=== PATIENT | female | born 1980 | race Caucasian/White ===

== ENCOUNTER 2019-02-16 05:21 | Day surgery (SDC) | payer OTHER ==
[~2019-02-16] VITALS: Ht 149.9 cm; Wt 60.0 kg
[2019-02-16] VITALS (10 sets, daily range): BP systolic 103–133; BP diastolic 59–75; PULSE 86–122; RESP 12–21; Ht 149.9 cm; Wt 60.0 kg
[~2019-02-16 05:21] MED LIST: LEVO175T38 PO
[2019-02-16] MEDS ORDERED: LACTATED RINGER'S 1,000 ML IV ONE (06:00)
[2019-02-16] MEDS ORDERED: ACETAMINOPHEN 500 MG TAB PO ONE (06:30)
[2019-02-16] MEDS ORDERED: ROPIVACAINE 0.5 % 30 ML VIAL ONE ×2 (07:08→07:32)
[2019-02-16] MEDS ORDERED: LEVALBUTEROL (NEB) 0.63 MG/3 ML AMP HHN PRN (07:30)
[2019-02-16] MEDS ORDERED: KETOROLAC 15 MG INJ IV PRN (07:30)
[2019-02-16] MEDS ORDERED: DIPHENHYDRAMINE 50 MG INJ IV PRN (07:30)
[2019-02-16] MEDS ORDERED: morphine 2 MG INJ IV PRN ×2 (07:30)
[2019-02-16] MEDS ORDERED: HYDROmorphONE 1 MG/5 ML IV SYRINGE IV PRN ×2 (07:30)
[2019-02-16] MEDS ORDERED: LABETALOL HCL 20MG INJ IV PRN (07:30)
[2019-02-16] MEDS ORDERED: OXYCODONE/ACETAMINOPHEN (5/325) TAB PO PRN ×2 (07:30)
[2019-02-16] MEDS ORDERED: ONDANSETRON 4 MG INJ IV PRN (07:30)
[2019-02-16] MEDS ORDERED: ATROPINE 1 MG/10 ML SYRINGE IV PRN (07:30)
[2019-02-16] MEDS ORDERED: FENTAnyl 50 MCG/ML VIAL IV PRN ×2 (07:30)
[2019-02-16] MEDS ORDERED: hydrALAzine 20 MG INJ IV PRN (07:30)
[2019-02-16] MEDS ORDERED: CEFAZOLIN 1 GM INJ ONE (07:30)
[2019-02-16] MEDS ORDERED: DESFLURANE 15 MIN ONE (07:30)
[2019-02-16] MEDS ORDERED: EPHEDrine 25 MG/5 ML SYG IV PRN (07:30)
[2019-02-16] MEDS ORDERED: ALBUTEROL 0.083% (NEB) 2.5 MG/3 ML AMP HHN PRN (07:30)
[2019-02-16] MEDS ORDERED: PROPOFOL 20 ML ONE (07:31)
[2019-02-16] MEDS ORDERED: ONDANSETRON 4 MG INJ ONE (07:31)
[2019-02-16] MEDS ORDERED: LIDOCAINE 2% (SDV) 5 ML INJ ONE (07:31)
[2019-02-16] MEDS ORDERED: FENTAnyl 50 MCG/ML VIAL ONE (07:31)
[2019-02-16] MEDS ORDERED: MIDAZOLAM 1 MG/ML 2 ML INJ ONE (07:31)
[2019-02-16] MEDS ORDERED: FAMOTIDINE 20 MG INJ ONE (07:43)
[2019-02-16] MEDS ORDERED: ROPIVACAINE 0.2% 20 ML VIAL ONE (07:44)
[2019-02-16] MEDS ORDERED: EPHEDrine 25 MG/5 ML SYG ONE (08:01)
[2019-02-16] MEDS: HYDROmorphONE 1 MG/5 ML IV SYRINGE IV PRN ×2 (09:03→09:17)
== END 2019-02-16 10:21 | disposition home or self-care (01) ==
LOC: SDS 05:21
PROVIDERS: ATTEND Orthopaedic Surgery
DX: G56.02 Carpal tunnel syndrome, left upper limb (principal); G56.22 Lesion of ulnar nerve, left upper limb; M77.12 Lateral epicondylitis, left elbow; E03.9 Hypothyroidism, unspecified
CPT/HCPCS: 24359; 64718; 64721; 84703; J1170; J1885; J2250; J2405; J2795; J3010; J0690